=== PATIENT | male | born 1995 | race Caucasian/White ===

== ENCOUNTER 2020-07-20 12:09 | Emergency (ER) | payer BC ==
[~2020-07-20] VITALS: Ht 180.3 cm; Wt 81.6 kg
[~2020-07-20 12:09] MED LIST: CYCL-10 PO
[2020-07-20 12:10] VITALS: BP_SYST 133
[2020-07-20 13:10] LABS: HEMATOCRIT 45.2 % (36-54); HEMOGLOBIN 15.1 g/dL (14.0-18.0); MEAN CORPUSCULAR HEMOGLOBIN 33 pg (27-31); MEAN CORPUSCULAR HGB CONC 33 % (32-36); MEAN CORPUSCULAR VOLUME 98 fL (79.0-98.0); PLATELET COUNT (AUTO) 282 K/uL (130-430); RED BLOOD CELL COUNT(AUTO) 4.63 MIL/uL (4.2-6.2); RED CELL DISTRIBUTION WIDTH 12.8 % (9.0-15.0)
[2020-07-20 13:12] LABS: WHITE BLOOD COUNT (AUTO) 17.9 K/uL (4.8-10.8)
[2020-07-20 13:16] LABS: ALANINE AMINOTRANSFERASE 31 U/L (12-78); ASPARTATE AMINOTRANSFERASE 25 U/L (10-37); CALCIUM 9.1 mg/dL (8.4-11.0); CHLORIDE 101 mmol/L (98-107); CREATININE 1.35 mg/dL (0.55-1.30); GLUCOSE 215 mg/dL (70-99); POTASSIUM 3.6 mmol/L (3.5-5.1); SODIUM SERUM 138 mmol/L (136-145); TOTAL BILIRUBIN 0.3 mg/dL (0.0-1.0); UREA NITROGEN, BLOOD 11 mg/dL (8-21)
[2020-07-20 13:17] LABS: PROTHROMBIN TIME 9.8 SECS (9.5-12.5)
[2020-07-20 13:24] LABS: ANION GAP 18 (5-15); GFR AFRICAN AMERICAN 84 mL/min (>90)
[2020-07-20 13:28] LABS: ALCOHOL, BLOOD < 3 mg/dL (<10)
[2020-07-20 13:40] LABS: BAND % (MANUAL) 7 % (0-6)
[2020-07-20 13:41] LABS: BASOPHILS % (MANUAL) 0 % (0-2); EOSINOPHILS % (MANUAL) 0 % (0-7); LYMPHOCYTES % (MANUAL) 14 % (20-46); MONOCYTES % (MANUAL) 3 % (0-11)
[2020-07-20] MEDS ORDERED: HYDR-3917 PO (14:09)
[2020-07-20 14:30] VITALS: BP_SYST 136
[2020-07-20] MEDS ORDERED: ONDA4TAB5 PO (15:03)
== END 2020-07-20 14:30 | disposition home or self-care (01) ==
LOC: SED 12:09
DX: S02.2XXA Fracture of nasal bones, initial encounter for closed fracture (principal); R56.9 Unspecified convulsions; Z79.899 Other long term (current) drug therapy; W18.39XA Other fall on same level, initial encounter; Y93.89 Activity, other specified; Y92.89 Other specified places as the place of occurrence of the external cause; Y99.8 Other external cause status
CPT/HCPCS: 36415; 70450; 76376; 80053; 85007; 85027; 85610; 85730; 99284; G0482